=== PATIENT | male | born 1985 | race Caucasian/White ===

== ENCOUNTER 2018-03-03 15:28 | Emergency (ER) | payer MEDICAID ==
--- NOTE | 2018-03-03 15:43 | EDPHY ---
H & P Time Seen by Provider: 03/03/18 15:40 HPI/ROS: CHIEF COMPLAINT: Left proximal tibia pain HISTORY OF PRESENT ILLNESS: 32-year-old male via private vehicle from [facility] after a snow boarder is knee impacted his left proximal tibial region. Unable to bear weight. Feels a cracking and popping sensation. No knee pain. No distal pain. No foot pain. No paresthesia. PRIMARY CARE PROVIDER: REVIEW OF SYSTEMS: A ten point review of systems was performed and is negative with the exception of the items mentioned in the HPI PHYSICAL EXAM (Prior to examination, patient consented to physical exam, hands were washed and my usual and customary physical exam procedures followed) 1) GENERAL: Well-developed, well-nourished, alert and oriented. Appears to be in no acute distress. 2) HEAD: Normocephalic 3) HEENT: Pupils equal, round, reactive to light bilaterally. 4) LUNGS: Breathing comfortably. 5) MUSCULOSKELETAL: Soft tissue swelling, tender to palpation proximal fibular region. Intact skin. Soft compartments. proximal tibia and fibula nontender .5th MT nontender negative [place] test, compartments soft 6) SKIN: Intact 7) VASCULAR: DP,PT pulses and cap refill present and brisk DIFFERENTIAL DIAGNOSIS: in no particular order including but not limited to fracture, sprain, compartment syndrome Procedure: Crutches indications for crutch use discussed with patient. Patient fitted for crutches by ER staff. Observed ambulating with crutches. I think the patient has the capacity to safely use crutches. Usual and customary crutch walking precautions provided Procedure: Splint A chet boot splint was applied by ER mobile service rv technician. After application of the splint I returned and re-examined the patient. The splint was adequately immobilizing the joint and distal to the splint the patient's circulation and sensation were intact. Patient shows no signs of compartment syndrome. Was given orthopedic precautions. Smoking Status: Current some day smoker Constitutional: Initial Vital Signs Temperature (C) 36.7 C 03/03/18 15:31 Heart Rate 91 03/03/18 15:31 Respiratory Rate 16 03/03/18 15:31 Blood Pressure 125/85 H 1222/18 15:31 O2 Sat (%) 97 03/03/18 15:31 O2 Delivery Mode Room Air Allergies/Adverse Reactions: tetracycline Allergy (Verified 03/03/18 15:30) Home Medications: Medication Instructions Recorded Hydrocodone/APAP 5/325 [[place] 1 tab PO Q6 PRN #7 tab 03/03/18 5/325 (RX)] MDM/Departure - MDM Imaging Results: Imaging Impressions Tibia/Fibula X-Ray 03/03/18 15:34 Impression: 1. Acute transverse fracture proximal to mid shaft left fibula with minimal displacement as detailed above. 2. Previous ORIF of distal fibular fracture with internal fixation plate in place. 3. Possible fractures associated with transversely oriented screw and K wire extending from the fibula to the tibia distally transversely that could be old. Images reviewed myself ED Course/Re-evaluation: 4:10 p.m.: Phone consultation Dr. Arriaza, Orthopedics on-call who reviewed the patient's images remotely, recommended [place] boot, weight-bearing as tolerated, recommend dedicated ankle imaging as well. - Depart Disposition: Home, Routine, Self-Care Clinical Impression: Snowboarding accident Qualifiers: Encounter type: initial encounter Qualified Code(s): V00.318A - Other snowboard accident, initial encounter Condition: Good Instructions: Leg Fracture (ED) Additional Instructions: Return to the ER immediately if you experience discoloration, have worsening pain, numbness, tingling, or any other symptoms that concern you. If you received x-rays in the emergency department today, be advised, that ligamentous , tendon, muscular, and other non-bony injury cannot be fully ruled out. Try to keep your affected extremity elevated above the level of your chest, and keep cold packs on the affected area, for the next 48 hours. Prescriptions: Hydrocodone/APAP 5/325 [[place] 5/325 (RX)] 1 tab PO Q6 PRN #7 tab PRN Reason: Pain, Severe Referrals: Mateo Arriaza MD [Medical Doctor] - 2-3 days, call for appt.
[2018-03-03 16:40] VITALS: BP 143/77
== END 2018-03-03 16:39 | disposition home or self-care (01) ==
DX: S82.422A Displaced transverse fracture of shaft of left fibula, initial encounter for closed fracture (principal); V00.318A Other snowboard accident, initial encounter; Y92.838 Other recreation area as the place of occurrence of the external cause; Y93.23 Activity, snow (alpine) (downhill) skiing, snowboarding, sledding, tobogganing and snow tubing; Y99.9 Unspecified external cause status
CPT/HCPCS: L4386

== ENCOUNTER 2018-06-03 22:52 | Observation (INO) | payer MEDICAID ==
--- NOTE | 2018-06-03 23:56 | EDPHY ---
H & P Stated Complaint: "POSS ANOTHER DVT L LEG" Time Seen by Provider: 06/03/18 22:53 HPI/ROS: HPI CHIEF COMPLAINT: Left leg swelling HISTORY OF PRESENT ILLNESS: Patient presents to the emergency room with Left leg increasing pain and swelling that started this morning noticed when he woke up his left leg was more swollen and pain to his left calf and left inner thigh. His complains of pain all the way up to his groin. On exam he has some streaking redness that goes up the medial aspect of his left leg. It is tender. I can feel a palpable cord. Specifically medial left thigh. He denies fever, does complain of pain. He is concerned about another DVT. Patient denies any injury. Past Medical History: Left leg fracture Past Surgical History: Left leg surgery. Social History: Denies drugs alcohol tobacco. Family History: Noncontributory ROS REVIEW OF SYSTEMS: 10 Systems were reviewed and negative with the exception of the elements mentioned in the history of present illness. Exam Constitutional triage nursing summary reviewed, vital signs reviewed, awake/ alert. Eyes normal conjunctivae and sclera, EOMI, PERRLA. HENT normal inspection, atraumatic, moist mucus membranes, no epistaxis, neck supple/ no meningismus, no raccoon eyes. Respiratory clear to auscultation bilaterally, normal breath sounds, no respiratory distress, no wheezing. Cardiovascular rate normal, regular rhythm, no murmur, no edema, distal pulses normal. Gastrointestinal soft, non-tender, no rebound, no guarding, normal bowel sounds, no distension, no pulsatile mass. Genitourinary no CVA tenderness. Musculoskeletal left lower extremity: Good distal pulse, good cap refill, pitting edema present. Mild tender palpation left posterior calf with erythema streaking up his left medial leg into his left thigh, mildly tender along this redness. no midline vertebral tenderness, full range of motion, no calf swelling, no tenderness of extremities, no meningismus, good pulses, neurovascularly intact. Skin pink, warm, & dry, no rash, skin atraumatic. Neurologic awake, alert and oriented x 3, AAOx3, moves all 4 extremities equally, motor intact, sensory intact, CN II-XII intact, normal cerebellar, normal vision, normal speech. Psychiatric normal mood/affect. Heme/Lymph/Immune no lymphadenopathy. Differential Diagnosis: Includes but is not limited to in a particular order left leg cellulitis, phlebitis, DVT Medical Decision Making: Plan for this patient IV establishment basic blood draw, ultrasound Doppler. Re-evaluation: Ultrasound of the left lower extremity shows superficial and deep vein thrombosis as described above The common femoral vein appears to be patent however chronic appearing thrombus and noted in the proximal mid and distal femoral vein with thrombus in the popliteal which may be acute the visualize in for popliteal veins appear normal. Additionally there is extensive segmental thrombus is noted in the greater saphenous vein extending into the groin to the knee. I spoke with Dr. Serena Ledbetter agrees to admit to the hospital. Spoke with patient agrees for admission. IV Ancef ordered due to left leg being erythematous, tender, concern for phlebitis and infection. Also concern for DVT. Source: Patient - Personal History Current Tetanus Diphtheria and Acellular Pertussis (TDAP): Yes - Medical/Surgical History Hx Asthma: No Hx Chronic Respiratory Disease: No Hx Diabetes: No Hx Cardiac Disease: No Hx Renal Disease: No Hx Cirrhosis: No Hx Alcoholism: No Hx HIV/AIDS: No Hx Splenectomy or Spleen Trauma: No Other PMH: L tib fib fx 2017, MJ USE - Social History Smoking Status: Never smoked Constitutional: Initial Vital Signs Temperature (C) 37.0 C 06/03/18 22:56 Heart Rate 93 06/03/18 22:56 Respiratory Rate 16 06/03/18 22:56 Blood Pressure 144/78 H 06/03/18 22:56 O2 Sat (%) 94 06/03/18 22:56 O2 Delivery Mode Room Air Allergies/Adverse Reactions: tetracycline Allergy (Verified 06/04/18 08:14) Anaphylaxis Home Medications: Medication Instructions Recorded Cephalexin [Keflex (*)] 500 mg PO TID #30 cap 06/04/18 Cholecalciferol Vit D3 [Vitamin D3 2,000 units PO DAILY 06/04/18 2000 units tab (OTC)] Cyanocobalamin [Vitamin B12 (*)] 1,000 mcg PO DAILY 06/04/18 [place]-3 Fatty Acids [Fish Oil 1000 1,000 mg PO DAILY 06/04/18 mg (*)] Rivaroxaban [Xarelto 15mg (*)] 15 mg PO BIDMEAL #40 tab 06/04/18 Rivaroxaban [Xarelto] 20 mg PO DAILY #30 tab 06/04/18 Medical Decision Making - Data Points Laboratory Results: Laboratory Results 06/04/18 00:15 06/04/18 00:15 Medications Given: Discontinued Medications Enoxaparin Sodium (Lovenox) 80 mg SC EDNOW ONE Stop: 06/04/18 01:06 Last Admin: 06/04/18 01:49 Dose: 80 mg Cefazolin Sodium/Dextrose (Ancef) 100 mls @ 200 mls/hr IV EDNOW ONE PRN Reason: Protocol Stop: 06/04/18 01:34 Last Admin: 06/04/18 01:32 Dose: 100 mls Rivaroxaban (Xarelto) 15 mg PO BIDMEAL [facility] Stop: 12/01/18 07:59 Last Admin: 06/04/18 09:38 Dose: 15 mg Departure - Departure Disposition: [facility] Inpatient Acute Clinical Impression: Phlebitis DVT (deep venous thrombosis) Qualifiers: DVT location: lower extremity Affected thrombotic vein of extremity: unspecified vein of extremity Chronicity: acute Laterality: left Qualified Code( s): I82.402 - Acute embolism and thrombosis of unspecified deep veins of left lower extremity Condition: Fair
[2018-06-04 00:25] LABS: PLATELET COUNT 193 10^3/uL (150-400)
[2018-06-04] MEDS ORDERED: ceFAZolin 2 GM/DEXTROSE 100 ML IV ONE (01:05)
[2018-06-04] MEDS ORDERED: ENOXAPARIN 80 MG/0.8 ML SYR SC ONE (01:05)
[2018-06-04] MEDS ORDERED: ONDANSETRON 4 MG/2 ML VIAL IVP PRN (01:48)
[2018-06-04] MEDS ORDERED: ACETAMINOPHEN 325 MG TAB PO PRN (01:48)
[2018-06-04] MEDS ORDERED: ONDANSETRON DISINTEGRATING 4 MG TAB PO PRN (01:48)
--- NOTE | 2018-06-04 01:53 | PDGENHP ---
History and Physical - Chief Complaint L leg swelling - History of Present Illness 32 yo M w/ hx of LLE DVT woke up this morning with L leg swelling. The patient had a tib/fib fracture requiring surgery 02/26. He experienced a DVT after this and was on Xarelto for 6 months. In February of 2018 he again injured his LLE and was in a walking boot for 2 months. This morning he woke up with LLE swelling and redness. US in the ED notable for acute on chronic DVT as well as superficial thrombosis. He is being admitted for initiation of anticoagulation and observation. Case discussed with ED physician Dr. Renteria; records reviewed and summarized above. History Information - Allergies/Home Medication List Allergies/Adverse Reactions: tetracycline Allergy (Verified 03/03/18 15:30) Home Medications: NK [No Known Home Meds] 06/03/18 [Last Taken Unknown] I have personally reviewed and updated: family history, medical history - Past Medical History DVT - Surgical History Additional surgical history: L Tib/fib surgery - Family History Additional family history: Denies family hx of DVT - Social History Smoking Status: Never smoked Review of Systems Review of Systems: ROS: 10pt was reviewed & negative except for what was stated in HPI & below Physical Exam Physical Exam: Temp Pulse Resp BP Pulse Ox 37.0 C 82 18 130/78 H 94 06/03/18 22:56 06/04/18 00:57 06/04/18 00:57 06/04/18 00:57 06/04/18 00:57 Constitutional: no apparent distress, appears nourished Eyes: PERRL, EOMI Ears, Nose, Mouth, Throat: moist mucous membranes, no oral mucosal ulcers Cardiovascular: regular rate and rhythym, no murmur, rub, or gallop, edema (LLE) Respiratory: no respiratory distress, clear to auscultation Gastrointestinal: normoactive bowel sounds, soft, non-tender abdomen Skin: warm, erythema (L thigh) Musculoskeletal: full muscle strength, muscular tenderness (L popliteal fossa) Neurologic: AAOx3, CN II-XII Intact Psychiatric: interacting appropriately, not anxious Lab Data & Imaging Review 06/04/18 00:15 06/04/18 00:15 WBC 10.40 10^3/uL (3.80-9.50) H 06/04/18 00:15 RBC 5.39 10^6/uL (4.40-6.38) 06/04/18 00:15 Hgb 16.9 g/dL (13.7-17.5) 06/04/18 00:15 Hct 48.3 % (40.0-51.0) 06/04/18 00:15 MCV 89.6 fL (81.5-99.8) 06/04/18 00:15 MCH 31.4 pg (27.9-34.1) 06/04/18 00:15 MCHC 35.0 g/dL (32.4-36.7) 06/04/18 00:15 RDW 13.0 % (11.5-15.2) 06/04/18 00:15 Plt Count 193 10^3/uL (150-400) 06/04/18 00:15 MPV 10.2 fL (8.7-11.7) 06/04/18 00:15 Neut % (Auto) 60.9 % (39.3-74.2) 06/04/18 00:15 Lymph % (Auto) 26.8 % (15.0-45.0) 06/04/18 00:15 [place] % (Auto) 9.3 % (4.5-13.0) 06/04/18 00:15 Eos % (Auto) 2.4 % (0.6-7.6) 06/04/18 00:15 Baso % (Auto) 0.3 % (0.3-1.7) 06/04/18 00:15 Nucleat RBC Rel Count 0.0 % (0.0-0.2) 06/04/18 00:15 Absolute Neuts (auto) 6.33 10^3/uL (1.70-6.50) 06/04/18 00:15 Absolute Lymphs (auto) 2.79 10^3/uL (1.00-3.00) 06/04/18 00:15 Absolute Monos (auto) 0.97 10^3/uL (0.30-0.80) H 06/04/18 00:15 Absolute Eos (auto) 0.25 10^3/uL (0.03-0.40) 06/04/18 00:15 Absolute Basos (auto) 0.03 10^3/uL (0.02-0.10) 06/04/18 00:15 Absolute Nucleated RBC 0.00 10^3/uL (0-0.01) 06/04/18 00:15 Immature Gran % 0.3 % (0.0-1.1) 06/04/18 00:15 Immature Gran # 0.03 10^3/uL (0.00-0.10) 06/04/18 00:15 Sodium 140 mEq/L (135-145) 06/04/18 00:15 Potassium 4.0 mEq/L (3.5-5.2) 06/04/18 00:15 Chloride 109 mEq/L (97-110) 06/04/18 00:15 Carbon Dioxide 25 mEq/l (22-31) 06/04/18 00:15 Anion Gap 6 mEq/L (6-14) 06/04/18 00:15 BUN 13 mg/dL (7-23) 06/04/18 00:15 Creatinine 1.0 mg/dL (0.7-1.3) 06/04/18 00:15 Estimated GFR > 60 06/04/18 00:15 Glucose 95 mg/dL (70-100) 06/04/18 00:15 Calcium 8.7 mg/dL (8.5-10.4) 06/04/18 00:15 Assessment & Plan Assessment: 32 yo m w/ hx of DVT presents with acute on chronic DVT. Plan: 1. Acute on chronic DVT - In the setting of recent injury and immobilization in walking boot. He last had a DVT after injury and surgery on 02/26 and was appropriately on Xarelto for 6 months. He also has superficial thrombophlebitis noted. - Admit for observation - S/p Lovenox x1 in ED - Will start Xarelto 15 mg BID - Warm compresses PRN for thrombophlebitis Diet - Regular Code - Full Ppx - Xarelto Dispo - Admit under observation status
[2018-06-04 05:10] LABS: PLATELET COUNT 188 10^3/uL (150-400)
[2018-06-04 07:50] VITALS: BP 123/82
[2018-06-04] MEDS ORDERED: RIVAROXABAN 15 MG TAB PO SCH (08:00)
--- NOTE | 2018-06-04 10:07 | ASMTDCNOTE ---
Case Management Discharge Discharge Order Complete? Answers: Yes Followup Appointment 06/04/2018 12:00 AM Patient to Obtain Answers: Independently Medications Transportation Arranged Answers: Other Notes: driving self Transport will Pick (Date 06/04/2018 12:00 AM & Time) Discharge Comments Notes: CM met with Patient. Patient is comfortable with discharging independently. Patient is driving himself home. Confirmed with RN that patient is safe to drive home. No further CM needs noted at this time. Date Signed: 06/04/2018 10:07 AM Electronically Signed By:Judy Angelo
--- NOTE | 2018-06-04 10:10 | ASDISCHSUM ---
Discharge Information Plan Status:Home with No Needs Medically Cleared to Leave:06/04/2018 Discharge Date:06/04/2018 CM D/C Disposition:Home, Routine, Self-Care ADT D/C Disposition:Home, Routine, Self-Care Projected Discharge Date:06/04/2018 12:00 AM Transportation at D/C:Self Discharge Delay Reason: Follow-Up Date:06/04/2018 12:00 AM Discharge Slot: Final Diagnosis:DVT, Superficial Thrombis Placement Information Patient Contact Information Contact Name:ANITA Relationship: Address: Home Phone: Work Phone: City: Alternate Phone: State/[employer] Code: Email: Financial Information Financial Class:Medicaid Primary Plan Desc:[employer] [place] [place] Primary Plan Number:[id number] Secondary Plan Desc: Secondary Plan Number: Assessment Information LACE LACE Length of stay for Answers: Less than 1 day current admission Acuity / Level of Answers: Yes Care: Did the patient have an inpatient admission? Comorbidities - select Answers: Other Notes: DVT all that apply # of Emergency department Answers: 1-2 visits in the last 6 months Score: 5 Date Signed: 06/04/2018 10:09 AM Electronically Signed By:Judy Angelo Case Management Discharge Plan Note Case Management Discharge Discharge Order Complete? Answers: Yes Followup Appointment 06/04/2018 12:00 AM Patient to Obtain Answers: Independently Medications Transportation Arranged Answers: Other Notes: driving self Transport will Pick (Date 06/04/2018 12:00 AM & Time) Discharge Comments Notes: CM met with Patient. Patient is comfortable with discharging independently. Patient is driving himself home. Confirmed with RN that patient is safe to drive home. No further CM needs noted at this time. Date Signed: 06/04/2018 10:07 AM Electronically Signed By:Judy Angelo Intervention Information
--- NOTE | 2018-06-04 13:14 | GDS ---
[f rep st] DISCHARGE SUMMARY ALL DIAGNOSES: 1. Acute recurrent left lower extremity deep venous thrombosis. 2. Possible cellulitis. HOSPITAL COURSE: This is a 32-year-old man with a history of a DVT, who presents with left leg swell ing. His first DVT occurred in February 2017 after a tib-fib fracture that was fixed surgically. He then refractured his bone approximately 3 months ago. He did not have to have subsequent surgery. He woke up this morning with significant edema. Diagnosed with superficial thrombus, as well as DVT in the left lower extremity. He had significant surrounding erythema streaking up to his groin. He is being treated appropriately for DVT with Xarelto, initially 15 mg twice daily, then 20 mg daily. Given the concern for cellulitis, I think it is appropriate to treat him for this. I recommended fei t he stay in the hospital for intravenous antibiotics and ongoing monitoring given the significance o f the erythema; however, he refuses to do this. I have given him strict return precautions and will start him on oral Keflex. Discussed risks and side effects of both Xarelto, as well as Keflex with h im. He is to follow up with his PCP in approximately 10 days. He is otherwise discharged in stable, but somewhat concerning condition. /[id number]/MODL
== END 2018-06-04 11:04 | disposition home or self-care (01) ==
LOC: F3E 06-04 02:14
PROVIDERS: ADMIT Student in an Organized Health Care Education/Training Program; ATTEND Student in an Organized Health Care Education/Training Program
DX: I82.412 Acute embolism and thrombosis of left femoral vein (principal); I82.432 Acute embolism and thrombosis of left popliteal vein; I80.02 Phlebitis and thrombophlebitis of superficial vessels of left lower extremity
CPT/HCPCS: 93971; 96365; 96372; 99285; G0378; J0690; J1650

== ENCOUNTER 2018-06-10 05:02 | Emergency (ER) | payer MEDICAID ==
[2018-06-10] MEDS ORDERED: NS 1,000 ML IV ONE (05:14)
--- NOTE | 2018-06-10 05:16 | EDPHY ---
H & P Stated Complaint: SOB/lightheaded, dx with DVT in L leg x1 week Time Seen by Provider: 06/10/18 05:11 HPI/ROS: Chief Complaint: Shortness of breath HPI: 32-year-old male was diagnosed with a DVT in his left leg 6 days ago was lying in bed and began having shortness of breath about 1 hr ago. Patient states that he has been taking his Xarelto twice a day as prescribed. He also has been taking his antibiotics in the redness in his leg has improved. No cough. Does not hurt to take a deep breath. No fevers or chills. He is continuing to complain of aching in his leg which is unchanged. No cough. ROS: 10 systems were reviewed and were negative except those elements noted in the HPI. PMH: DVT Social History: No smoking, occasional alcohol, occasional marijuana Family History: non-contributory Physical Exam: Gen: Awake, Alert, No Distress HEENT: Nose: no rhinorrhea Eyes: PERRLA, EOMI Mouth: Moist mucosa Neck: Supple, no JVD Chest: nontender, lungs clear to auscultation Heart: S1, S2 normal, no murmur Abd: Soft, non-tender, no guarding Back: no CVA tenderness, no midline tenderness Ext: Moderate left leg edema, moderate tenderness Skin: no rash Neuro: CN II-XII intact, Sensation grossly intact, Strength 5/5 in bilateral upper and lower extremities - Personal History Current Tetanus/Diphtheria Vaccine: Yes - Medical/Surgical History Hx Asthma: No Hx Chronic Respiratory Disease: No Hx Diabetes: No Hx Cardiac Disease: No Hx Renal Disease: No Hx Cirrhosis: No Hx Alcoholism: No Hx HIV/AIDS: No Hx Splenectomy or Spleen Trauma: No Other PMH: L tib fib fx 2017, MJ USE, DVT 2019 - Social History Smoking Status: Never smoked Constitutional: Initial Vital Signs Temperature (C) 36.5 C 06/10/18 05:05 Heart Rate 107 H 06/10/18 05:05 Respiratory Rate 18 06/10/18 05:05 Blood Pressure 163/94 H 06/10/18 05:05 O2 Sat (%) 96 06/10/18 05:05 O2 Delivery Mode Room Air Allergies/Adverse Reactions: tetracycline Allergy (Verified 06/04/18 08:14) Anaphylaxis Home Medications: Medication Instructions Recorded Cephalexin [Keflex (*)] 500 mg PO TID #30 cap 06/04/18 Cholecalciferol Vit D3 [Vitamin D3 2,000 units PO DAILY 06/04/18 2000 units tab (OTC)] Cyanocobalamin [Vitamin B12 (*)] 1,000 mcg PO DAILY 06/04/18 [place]-3 Fatty Acids [Fish Oil 1000 1,000 mg PO DAILY 06/04/18 mg (*)] Rivaroxaban [Xarelto 15mg (*)] 15 mg PO BIDMEAL #40 tab 06/04/18 Rivaroxaban [Xarelto] 20 mg PO DAILY #30 tab 06/04/18 Medical Decision Making - Diagnostics Imaging Results: STUDY TITLE: ANGIO CHEST W IV CONTRAST HISTORY: AWOKE WITH CHEST PAIN AND SOB RECENT DVT LT LEG X 5 DAYS COMPARISON: None. FINDINGS: VASCULATURE: Technically adequate examination, no evidence of pulmonary embolus. The thoracic aorta and main pulmonary artery are normal in caliber. LUNGS AND PLEURA: No focal consolidation, pleural effusion or pneumothorax is evident. Granuloma noted in the lingula. HEART AND MEDIASTINUM: The heart size is normal and there is no pericardial effusion. No significant lymphadenopathy noted. Calcified left hilar lymph nodes consistent with prior granulomatous disease. UPPER ABDOMEN: No significant abnormality noted. CHEST WALL: No significant abnormality noted. IMPRESSION: Technically adequate examination, no evidence of pulmonary embolus. ELECTRONICALLY SIGNED BY: Tanvir Jeter MD ED Course/Re-evaluation: 32-year-old male with recent diagnosis of DVT. He is adequately anticoagulated. No PE on CT scan today. He has been reassured. Will discharge with follow-up with primary care physician. His tachycardia has resolved after IV hydration. - Data Points Laboratory Results: 06/10/18 05:23 POC Hgb 18.0 gm/dL H gm/dL (13.7-17.5) POC Hct 53 % H % (40-51) POC Sodium 142 mEq/L mEq/L (135-145) POC Potassium 3.8 mEq/L mEq/L (3.3-5.0) POC Chloride 105 mEq/L mEq/L (97-110) POC Total CO2 22 mEq/L mEq/L (22-31) POC BUN 9 mg/dL mg/dL (7-23) POC Creatinine 1.0 mg/dL mg/dL (0.7-1.3) POC Glucose 102 mg/dL H mg/dL (70-100) Medications Given: Discontinued Medications Sodium Chloride (Ns) 1,000 mls @ 0 mls/hr IV ONCE ONE; Wide Open PRN Reason: Protocol Stop: 06/10/18 05:15 Last Admin: 06/10/18 05:20 Dose: 1,000 mls Point of Care Test Results: Chemistry 06/10/18 05:23 POC Sodium 142 mEq/L mEq/L (135-145) POC Potassium 3.8 mEq/L mEq/L (3.3-5.0) POC Chloride 105 mEq/L mEq/L (97-110) POC Total CO2 22 mEq/L mEq/L (22-31) POC BUN 9 mg/dL mg/dL (7-23) POC Creatinine 1.0 mg/dL mg/dL (0.7-1.3) POC Glucose 102 mg/dL H mg/dL (70-100) ISTAT H&H 06/10/18 05:23 POC Hgb 18.0 gm/dL H gm/dL (13.7-17.5) POC Hct 53 % H % (40-51) Departure - Departure Disposition: Home, Routine, Self-Care Clinical Impression: Dyspnea Condition: Good Instructions: Dyspnea (ED) Additional Instructions: Follow up with primary care physician in 3-4 days for further evaluation. Return to the emergency department for increasing chest pain, shortness of breath, fevers, chills, cough, or any other concerns. Referrals: Oly Walker MD [Medical Doctor] - As per Instructions
[2018-06-10] MEDS ORDERED: IOPAMIDOL (ISOVUE 370) 100 ML BTL IV ONE (05:19)
[2018-06-10 06:04] VITALS: BP 149/84
== END 2018-06-10 06:05 | disposition home or self-care (01) ==
DX: R06.00 Dyspnea, unspecified (principal); E86.9 Volume depletion, unspecified; Z86.718 Personal history of other venous thrombosis and embolism; Z79.01 Long term (current) use of anticoagulants; Z79.2 Long term (current) use of antibiotics
CPT/HCPCS: 82435-PO; 82565-PO; 82947-PO; 84132-PO; 84295-PO; 84520-PO; 85014-ER; Q9967